=== PATIENT | male | born 2005 | race Caucasian/White ===

== ENCOUNTER 2025-10-14 20:29 | Emergency (ER) | payer BC ==
[2025-10-14] MEDS ORDERED: Acetaminophen 500 MG TAB ONE (21:53)
[2025-10-14] MEDS ORDERED: Ibuprofen 200 MG TAB ONE (21:53)
== END 2025-10-14 22:05 | disposition home or self-care (01) ==
LOC: CSHERS 20:29
DX: S93.402A Sprain of unspecified ligament of left ankle, initial encounter (principal); X50.1XXA Overexertion from prolonged static or awkward postures, initial encounter; Y93.21 Activity, ice skating
CPT/HCPCS: 99283